=== PATIENT | male | born 1950 | race Caucasian/White ===

== ENCOUNTER 2024-10-01 02:52 | Day surgery (SDC) | payer MEDICARE, SELFPAY ==
[2024-09-13 13:06] VITALS: BMI 19.3
[2024-10-01 06:23] VITALS: BP 127/86; PULSE 94; RESP 18; TEMP 36.3; O2SAT 100
[2024-10-01] MEDS: LACTATED RINGERS 1,000 ML 150 ML IV CONT (06:35)
--- NOTE | 2024-10-01 07:09 | PM.HPGS ---
History of Present Illness History of Present Illness Consent: Risks, benefits, and alternatives have been discussed and questions answered. Patient agrees to proceed with procedure. Chief complaint: neoplasm screening Narrative: Bon Jay Jr. is a 74 year old male here for screening colonoscopy, last one 12 years ago Review of Systems Review of Systems: All systems reviewed & are unremarkable except as noted in HPI and below PMFSH Past Medical History Medical History (Updated 10/01/24 @ 07:09 by Fabio Rucker MD) Colon cancer screening Family History Family History (System 06/03/22 @ 08:30 by Mendez Rodas) Father Family history of premature coronary heart disease Grandparent Family history of premature coronary heart disease Mother Hypertension Sibling Family history of diabetes mellitus in first degree relative Social History Social History (System 06/03/22 @ 08:30 by Mendez Rodas) Smoking status: Never smoker Alcohol intake: current Drinks per week: 10 Alcohol use details: previously 4 per day Living arrangements: with family Spiritual care concerns: No Meds Home Medications and Allergies Home Medications Medication Instructions Recorded Confirmed Type aspirin 81 mg tablet,delayed 81 mg PO DAILY 09/13/24 10/01/24 History release atorvastatin 10 mg tablet 10 mg PO DAILY 09/13/24 10/01/24 History hydroxychloroquine 200 mg tablet 200 mg PO DAILY 09/13/24 10/01/24 History pantoprazole 40 mg tablet,delayed 40 mg PO DAILY 09/13/24 10/01/24 History release prednisone 1 mg tablet 1 mg PO DAILY 09/13/24 10/01/24 History Allergies Allergy/AdvReac Type Severity Reaction Status Date / Time No Known Allergies Allergy Verified 10/01/24 06:22 Vital Signs Vital Signs - 24 hr 10/01/24 06:23 Temperature 97.3 F L Pulse Rate 94 Respiratory Rate 18 Blood Pressure 127/86 Pulse Oximetry 100 Oxygen Delivery Room Air Exam Const: General: comfortable and no acute distress HENMT: Face/Nose/Sinus: Normal nares present Eyes: General: appearance normal, both eyes and all related structures Neck: Neck: no JVD Resp: Auscultation: clear to auscultation bilaterally Cardio: Rate: regular rate Rhythm: regular rhythm GI: Inspection: non-distended GI Palp: Yes Soft to palpation Skin: General skin exam: normal color Neuro: General: gait normal Speech: normal speech Extrem: General: normal to inspection Psych: Mental Status: mental status grossly normal Assessment and Plan Assessment and plan (1) Colon cancer screening: Code(s): Z12.11 - Encounter for screening for malignant neoplasm of colon Status: Acute Assessment and Plan: colonoscopy
--- NOTE | 2024-10-01 07:16 | WPDANESEPPF ---
Anes - Initial Pre Proc Eval Procedure: Operation Date: 10/01/24 07:30 Proposed Procedures p Screening Colonoscopy - Fabio Rucker MD Date/Time: 10/01/24 07:16 Surgeon: Fabio Rucker MD Pre Op Diagnosis: neoplasm screening Patient Data Age: 74 Gender: M Height: 1.78 m Weight: 61.3 kg Last Vital Signs Temp 97.3 F L 10/01/24 06:23 Pulse 94 10/01/24 06:23 Resp 18 10/01/24 06:23 BP 127/86 10/01/24 06:23 Pulse Ox 100 10/01/24 06:23 O2 Del Method Room Air 10/01/24 06:23 Allergies Allergy/AdvReac Type Severity Reaction Status Date / Time No Known Allergies Allergy Verified 10/01/24 06:22 Home Medications Medication Instructions Recorded Confirmed Type aspirin 81 mg tablet,delayed 81 mg PO DAILY 09/13/24 10/01/24 History release atorvastatin 10 mg tablet 10 mg PO DAILY 09/13/24 10/01/24 History hydroxychloroquine 200 mg tablet 200 mg PO DAILY 09/13/24 10/01/24 History pantoprazole 40 mg tablet,delayed 40 mg PO DAILY 09/13/24 10/01/24 History release prednisone 1 mg tablet 1 mg PO DAILY 09/13/24 10/01/24 History Patient hx anesthesia problems: none Family hx anesthesia problems: none Results Review: All pre-operative results and documents have been reviewed as part of the pre-operative evaluation. [facility] Past Medical History Medical History Colon cancer screening Family History Family History Father Family history of premature coronary heart disease Grandparent Family history of premature coronary heart disease Mother Hypertension Sibling Family history of diabetes mellitus in first degree relative Social History Social History Smoking status: Never smoker Alcohol intake: current Drinks per week: 10 Alcohol use details: previously 4 per day Living arrangements: with family Spiritual care concerns: No Anes - Eval Final PreProcedure Day of Procedure 10/01/24 07:16 Patient weight: normal Heart: regular rate and rhythm Lungs: clear to auscultation Airway: Mallampati scale class II Neurological: alert and oriented Last oral intake: >/= 8 hours ASA classification: II Emergent: no Anesthetic plan: delay Anesthesia type and monitoring: general GIVS and standard monitoring Results Review: All pre-operative results and documents have been reviewed as part of the pre-operative evaluation. Hyperlipidemia. Informed Consent: The patient's anesthetic plan and its attendant risks and benefits were discussed with the patient/family/POA. Questions were solicited and answers provided to the satisfaction of the patient/family/POA.
[2024-10-01 07:58] VITALS: BP 87/51; PULSE 75; RESP 13; O2SAT 100
[2024-10-01 08:08] VITALS: BP 102/55; PULSE 75; RESP 12; O2SAT 100
[2024-10-01 08:18] VITALS: BP 100/68; PULSE 75; RESP 12; O2SAT 100
== END 2024-10-01 08:28 | disposition home or self-care (01) ==
PROVIDERS: Visit Provider Internal Medicine Gastroenterology
PROC: 0DJD8ZZ Inspection of Lower Intestinal Tract, Via Natural or Artificial Opening Endoscopic (ICD-10-PCS; CPT 45378; principal; 2024-10-01 07:30)
DX: Z12.11 Encounter for screening for malignant neoplasm of colon (principal); K64.8 Other hemorrhoids; Z79.82 Long term (current) use of aspirin; Z79.52 Long term (current) use of systemic steroids; Z82.49 Family history of ischemic heart disease and other diseases of the circulatory system
CPT/HCPCS: G0121; J2704; J7120

== ENCOUNTER 2025-10-01 07:42 | Outpatient (CLI) | payer MEDICARE, SELFPAY ==
--- NOTE | ~2025-10-01 | MR_ITS ---
EXAMINATION: MR shoulder RT wo con DATE: 10/01/2025 08:22 INDICATION: Right rotator cuff disorder TECHNIQUE: Magnetic resonance imaging (MRI) of the right shoulder was performed without intravenous contrast. Sequences included axial PD-weighted FS FSE, coronal oblique PD-weighted FS FSE, coronal oblique T2-weighted FS FSE, sagittal PD-weighted FS FSE, and sagittal T1-weighted SE. COMPARISON: None. FINDINGS: Coracoacromial arch: The acromion undersurface is curved in morphology (type II). Mild thickening and undersurface fraying of the coracoacromial ligament. Moderate acromioclavicular osteoarthritis with small inferiorly directed osteophytes. Rotator cuff: Moderate supraspinatus tendinopathy with full-thickness tear extending 1.2 cm AP along the superior facet footplate and with 2.5 cm medial retraction of the bursal side of the torn tendon and 3.5 cm medial retraction of the bursal side of of the tendon. Mild to moderate infraspinatus tendinopathy without discrete tear. The teres minor tendon is normal. Mild subscapularis tendinopathy with small partial-thickness tear involving approximately 3-4 mm diameter region of the superolateral lesser tuberosity footplate of the tendon. Normal rotator cuff muscle bulk and signal. Biceps tendon, glenoid labrum and glenohumeral cartilage: Mild tendinopathy without discrete tear of the intra-articular long head biceps tendon. Small tear at the base of the 12:00-12:30 position of the superior glenoid labrum. There is degenerative tearing of the anterior to anteroinferior rim of the glenoid. Glenoid labrum with small marginal osteophytes. Glenohumeral cartilage is normal. Fluid: Moderate-sized glenohumeral joint effusion with proportional extension of fluid in the long head biceps tendon sheath and through the full-thickness rotator cuff tear to indicate with a moderate amount of fluid in the subacromial/subdeltoid subcoracoid bursae. No loose osteochondral bodies. Bones: Bone alignment is normal. No fracture or pathologic marrow replacing process. IMPRESSION: 1. Moderate supraspinatus and infraspinatus tendinopathy with small full- thickness tear along the superior facet footplate of the supraspinatus tendon. 2. Mild subscapularis tendinopathy with small partial lesser tuberosity footplate of the tendon. Thickness tear at the superolateral. 3. Mild glenohumeral osteoarthritis with tear of the superior labrum, degeneration the anterior to anteroinferior labrum and moderate size when humeral joint effusion. 4. Moderate right acromioclavicular osteoarthritis. 5. Mild tendinopathy without tear of the intra-articular long head biceps tendon. Reviewed, dictated and finalized at location [facility] IMPRESSION: 1. Moderate supraspinatus and infraspinatus tendinopathy with small full-thickn ess tear along the superior facet footplate of the supraspinatus tendon. 2. Mild subscapularis tendinopathy with small partial lesser tuberosity footpla te of the tendon. Thickness tear at the superolateral. 3. Mild glenohumeral osteoarthritis with tear of the superior labrum, degenerat ion the anterior to anteroinferior labrum and moderate size when humeral joint effusion. 4. Moderate right acromioclavicular osteoarthritis. 5. Mild tendinopathy without tear of the intra-articular long head biceps tendo n.
== END 2025-10-01 07:43 | disposition home or self-care (01) ==
LOC: MICIMG 07:43
DX: M67.911 Unspecified disorder of synovium and tendon, right shoulder (principal); M19.011 Primary osteoarthritis, right shoulder; M75.101 Unspecified rotator cuff tear or rupture of right shoulder, not specified as traumatic
CPT/HCPCS: 73221